=== PATIENT | male | born 1965 | race Caucasian/White ===

== ENCOUNTER 2017-06-28 11:56 | Emergency (ER) | payer MEDICAID ==
[~2017-06-28] VITALS: Ht 185.4 cm; Wt 91.0 kg
[~2017-06-28 11:56] MED LIST: CLIN-79 PO
[2017-06-28] MEDS ORDERED: PENI250T2 PO (13:31)
[2017-06-28] MEDS ORDERED: NAPR-56 PO (13:31)
[2017-06-28 13:52] VITALS: BP 145/65
== END 2017-06-28 13:54 | disposition home or self-care (01) ==
LOC: ER 11:57
DX: K08.89 Other specified disorders of teeth and supporting structures (principal); F17.200 Nicotine dependence, unspecified, uncomplicated; F12.10 Cannabis abuse, uncomplicated
CPT/HCPCS: 99283